=== PATIENT | male | born 1940 | race Caucasian/White ===

== ENCOUNTER 2022-07-28 09:12 | Observation (INO) | payer MEDICARE ==
[2022-07-28] MEDS ORDERED: SODIUM CHLORIDE 0.9% 1,000 ML IV STA (09:35)
--- NOTE | 2022-07-28 09:42 | ED ---
General Adult HPI - General Chief complaint: Fall Stated complaint: Dementia,COPD Time Seen by Provider: 07/28/22 09:15 Source: patient, EMS, RN notes reviewed, old records reviewed Mode of arrival: EMS Limitations: no limitations - History of Present Illness Initial comments: This is an 82-year-old male presents emergency department after having had a syncopal episode. Patient states he got up this morning took a very warm shower and sat down on the toilet and then passed out. Patient states he had no chest pain difficulty breathing shortness of breath before or after the incident. Patient denies injuring himself when he fell off the toilet. Patient states he has no headache he has not had any pain on a scale. Patient denies any neck pain patient with any numbness weakness. Patient states he is absolutely no symptoms currently. Patient states he's been no recent history of nausea vomiting or diarrhea. Patient denies any recent fever chills or cough. Patient states he never had any palpitations. Patient states currently he feels at his baseline and he doesn't think he needs to be here. - Related Data Home Medications Medication Instructions Recorded Confirmed Erivedge 150mg Caps 150 mg PO HS 07/28/22 07/28/22 Losartan-Hctz 50-12.5 mg [Hyzaar 1 tab PO DAILY 07/28/22 07/28/22 50-12.5] Mupirocin 2% Oint [Bactroban 2% 1 applic TOPICAL DAILY 07/28/22 07/28/22 Oint] Allergies Allergy/AdvReac Type Severity Reaction Status Date / Time No Known Allergies Allergy Verified 07/28/22 10:43 Review of Systems ROS Statement: Those systems with pertinent positive or pertinent negative responses have been documented in the HPI. ROS Other: All systems not noted in ROS Statement are negative. Past Medical History Past Medical History: Cancer, Dementia, Hypertension Additional Past Medical History / Comment(s): Skin cancer 2021 History of Any Multi-Drug Resistant Organisms: None Reported Past Surgical History: Orthopedic Surgery Additional Past Surgical History / Comment(s): skin cancer removal, Past Psychological History: No Psychological Hx Reported Smoking Status: Former smoker Past Alcohol Use History: None Reported Past Drug Use History: None Reported General Exam - General Exam Comments Initial Comments: GENERAL: Patient is well-developed and well-nourished. Patient is nontoxic and well- hydrated and is in no acute distress. ENT: Neck is soft and supple. No significant lymphadenopathy is noted. Oropharynx is clear. Moist mucous membranes. Neck has full range of motion without eliciting any pain. EYES: The sclera were anicteric and conjunctiva were pink and moist. Extraocular movements were intact and pupils were equal round and reactive to light. Eyelids were unremarkable. PULMONARY: Unlabored respirations. Good breath sounds bilaterally. No audible rales rhonchi or wheezing was noted. CARDIOVASCULAR: There is a regular rate and rhythm without any murmurs gallops or rubs. ABDOMEN: Soft and nontender with normal bowel sounds. SKIN: Skin is clear with no lesions or rashes and otherwise unremarkable. NEUROLOGIC: Patient is alert and oriented x3. Cranial nerves II through XII are grossly intact. Motor and sensory are also intact. Normal speech, volume and content. Symmetrical smile. MUSCULOSKELETAL: Normal extremities with adequate strength and full range of motion. No lower extremity swelling or edema. No calf tenderness. LYMPHATICS: No significant lymphadenopathy is noted PSYCHIATRIC: Normal psychiatric evaluation. Limitations: no limitations Course Vital Signs 07/28/22 07/28/22 07/28/22 09:13 10:00 10:30 Temperature 98.7 F Pulse Rate 65 64 84 Respiratory 18 22 18 Rate Blood Pressure 131/96 123/74 124/68 O2 Sat by Pulse 96 95 96 Oximetry 07/28/22 07/28/22 07/28/22 11:00 11:30 12:00 Temperature Pulse Rate 68 71 70 Respiratory 18 18 18 Rate Blood Pressure 143/79 133/76 130/74 O2 Sat by Pulse 96 96 96 Oximetry Medical Decision Making - Medical Decision Making EKG shows sinus bradycardia [address] interval is 150 QRS is 81 QT interval 382 QTC is 381. Patient's EKG shows no ST segment elevation or depression. Family arrived and stated he vomited at least 5 times recently and is unsafe to have him at home it's unsupervised. I spoke with sounds physician's he agreed to admit the patient to the patient wrote admitting orders. - Lab Data Result diagrams: 07/28/22 09:36 07/28/22 09:36 Lab Results 07/28/22 07/28/22 07/28/22 Range/Units 09:36 09:36 09:36 WBC 4.3 (3.8-10.6) k/uL RBC 5.43 (4.30-5.90) m/uL Hgb 14.7 (13.0-17.5) gm/dL Hct 45.8 (39.0-53.0) % MCV 84.4 (80.0-100.0) fL MCH 27.1 (25.0-35.0) pg MCHC 32.1 (31.0-37.0) g/dL RDW 16.0 H (11.5-15.5) % Plt Count 180 (150-450) k/uL MPV 8.7 Neutrophils % 73 % Lymphocytes % 18 % Monocytes % 6 % Eosinophils % 1 % Basophils % 0 % Neutrophils # 3.1 (1.3-7.7) k/uL Lymphocytes # 0.8 L (1.0-4.8) k/uL Monocytes # 0.3 (0-1.0) k/uL Eosinophils # 0.1 (0-0.7) k/uL Basophils # 0.0 (0-0.2) k/uL PT 9.9 (9.0-12.0) sec INR 0.9 (<1.2) APTT 19.6 L (22.0-30.0) sec Sodium (137-145) mmol/L Potassium (3.5-5.1) mmol/L Chloride (98-107) mmol/L Carbon Dioxide (22-30) mmol/L Anion Gap mmol/L BUN (9-20) mg/dL Creatinine (0.66-1.25) mg/dL Est GFR (CKD-EPI)AfAm (>60 ml/min/1.73 sqM) Est GFR (CKD-EPI)NonAf (>60 ml/min/1.73 sqM) Glucose (74-99) mg/dL Calcium (8.4-10.2) mg/dL Magnesium (1.6-2.3) mg/dL Total Bilirubin (0.2-1.3) mg/dL AST (17-59) U/L ALT (4-49) U/L Alkaline Phosphatase (38-126) U/L Troponin I (0.000-0.034) ng/mL Total Protein (6.3-8.2) g/dL Albumin (3.5-5.0) g/dL Urine Color Yellow Urine Appearance Clear (Clear) Urine pH 6.5 (5.0-8.0) Ur Specific Grayson 1.021 (1.001-1.035) Urine Protein Trace H (Negative) Urine Glucose (UA) Negative (Negative) Urine Ketones Negative (Negative) Urine Blood Negative (Negative) Urine Nitrite Negative (Negative) Urine Bilirubin Negative (Negative) Urine Urobilinogen <2.0 (<2.0) mg/dL Ur Leukocyte Esterase Negative (Negative) 07/28/22 07/28/22 Range/Units 09:36 09:36 WBC (3.8-10.6) k/uL RBC (4.30-5.90) m/uL Hgb (13.0-17.5) gm/dL Hct (39.0-53.0) % MCV (80.0-100.0) fL MCH (25.0-35.0) pg MCHC (31.0-37.0) g/dL RDW (11.5-15.5) % Plt Count (150-450) k/uL MPV Neutrophils % % Lymphocytes % % Monocytes % % Eosinophils % % Basophils % % Neutrophils # (1.3-7.7) k/uL Lymphocytes # (1.0-4.8) k/uL Monocytes # (0-1.0) k/uL Eosinophils # (0-0.7) k/uL Basophils # (0-0.2) k/uL PT (9.0-12.0) sec INR (<1.2) APTT (22.0-30.0) sec Sodium 138 (137-145) mmol/L Potassium 4.1 (3.5-5.1) mmol/L Chloride 106 (98-107) mmol/L Carbon Dioxide 21 L (22-30) mmol/L Anion Gap 11 mmol/L BUN 17 (9-20) mg/dL Creatinine 0.99 (0.66-1.25) mg/dL Est GFR (CKD-EPI)AfAm 82 (>60 ml/min/1.73 sqM) Est GFR (CKD-EPI)NonAf 71 (>60 ml/min/1.73 sqM) Glucose 120 H (74-99) mg/dL Calcium 8.4 (8.4-10.2) mg/dL Magnesium 1.8 (1.6-2.3) mg/dL Total Bilirubin 0.6 (0.2-1.3) mg/dL AST 23 (17-59) U/L ALT 23 (4-49) U/L Alkaline Phosphatase 81 (38-126) U/L Troponin I <0.012 (0.000-0.034) ng/mL Total Protein 6.1 L (6.3-8.2) g/dL Albumin 3.7 (3.5-5.0) g/dL Urine Color Urine Appearance (Clear) Urine pH (5.0-8.0) Ur Specific Grayson (1.001-1.035) Urine Protein (Negative) Urine Glucose (UA) (Negative) Urine Ketones (Negative) Urine Blood (Negative) Urine Nitrite (Negative) Urine Bilirubin (Negative) Urine Urobilinogen (<2.0) mg/dL Ur Leukocyte Esterase (Negative) Disposition Clinical Impression: Syncope, Multiple falls Disposition: ADMITTED IP TO THIS [facility] Referrals: Francisco Javier Caballero DO [Primary Care Provider] - 1-2 days Time of Disposition: 12:31
[2022-07-28 09:44] LABS: Basophils % (A) 0 %; Eosinophils # (A) 0.1 k/uL (0-0.7); Eosinophils % (A) 1 %; HCT 45.8 % (39.0-53.0); HGB 14.7 gm/dL (13.0-17.5); Lymphocytes # (A) 0.8 k/uL (1.0-4.8); Lymphocytes % (A) 18 %; MCH 27.1 pg (25.0-35.0); MCHC 32.1 g/dL (31.0-37.0); MCV 84.4 fL (80.0-100.0); Mean Platelet Volume 8.7; Monocytes # (A) 0.3 k/uL (0-1.0); Monocytes % (A) 6 %; Neutrophils # (A) 3.1 k/uL (1.3-7.7); Neutrophils % (A) 73 %; Platelet Count 180 k/uL (150-450); RBC 5.43 m/uL (4.30-5.90); WBC 4.3 k/uL (3.8-10.6)
[2022-07-28 09:54] LABS: Albumin 3.7 g/dL (3.5-5.0); Calcium 8.4 mg/dL (8.4-10.2); Magnesium 1.8 mg/dL (1.6-2.3); Potassium 4.1 mmol/L (3.5-5.1); Total Bilirubin 0.6 mg/dL (0.2-1.3); Total Protein 6.1 g/dL (6.3-8.2)
[2022-07-28 10:00] LABS: INR 0.9 (<1.2); Prothrombin Time 9.9 sec (9.0-12.0)
[2022-07-28 10:17] LABS: Partial Thromboplastin Time 19.6 sec (22.0-30.0)
--- NOTE | 2022-07-28 10:32 | XR ---
EXAMINATION TYPE: XR chest 2V DATE OF EXAM: 07/28/2022 COMPARISON: NONE HISTORY: Chest pain TECHNIQUE: Frontal and lateral views of the chest are obtained. FINDINGS: The patient is rotated. There is no focal air space opacity, pleural effusion, or pneumotho rax seen. The cardiac silhouette size is within normal limits. Bandlike areas of increased attenuati on present at the lung bases may reflect atelectasis or scar. There are overlying leads. The osseous structures are intact, compression deformity is noted in the lower thoracic spine, arthropathy noted in the shoulders. IMPRESSION: Possible atelectasis or scarring. Suspect compression deformity near the thoracolumbar j unction, indeterminate age.
[2022-07-28 11:44] LABS: Appearance,Urine Clear (Clear); Bilirubin,Urine Negative (Negative); Blood,Urine Negative (Negative); Color,Urine Yellow; Glucose,Urine (UA) Negative (Negative); Ketones,Urine Negative (Negative); Leukocyte Esterase,Urine Negative (Negative); Nitrite,Urine Negative (Negative); PH, Urine 6.5 (5.0-8.0); Protein,Urine Trace (Negative); Specific Gravity,Urine 1.021 (1.001-1.035); Urobilinogen,Urine <2.0 mg/dL (<2.0)
[2022-07-28] MEDS ORDERED: SODIUM CHLORIDE 0.9% 1,000 ML IV ONE (12:31)
--- NOTE | 2022-07-28 16:28 | P.HPIM ---
History of Present Illness H&P Date: 07/28/22 Chief Complaint: fall Patient is a 82-year-old male with a past medical history of hypertension and skin cancer with recent resection who presents to the ED because of a fall. Patient states that he took a warm shower and then sat on the toilet to dry himself and then the next thing he remembers is that he is between the toilet and the shower. Patient does not know how he got stuck there. He believes that he may have passed out. He denies urinary incontinence or tongue soreness. He also denies any chest pain or lightheadedness at that time. His nephew called EMS and he was brought in for further evaluation. Patient also states that his is at [facility] rehab and they have been trying to get him into rehab so that he can be with his and also because at home he is having a difficult time going up the stairs. In the ED family said they did not feel comfortable taking him home because they thought that he was high risk for falls. Of note when I first walked into the patient's room he was standing up independently and was urinating inside a urinal. Patient said that he is able to get up by himself and use the urinal. Review of Systems 10 ROS reviewed and are negative except as noted in HPI Past Medical History Past Medical History: Cancer, Dementia, Hypertension Additional Past Medical History / Comment(s): Skin cancer 2021 History of Any Multi-Drug Resistant Organisms: None Reported Past Surgical History: Orthopedic Surgery Additional Past Surgical History / Comment(s): skin cancer removal, Past Psychological History: No Psychological Hx Reported Smoking Status: Former smoker Past Alcohol Use History: None Reported Past Drug Use History: None Reported Medications and Allergies Home Medications Medication Instructions Recorded Confirmed Type Erivedge 150mg Caps 150 mg PO HS 07/28/22 07/28/22 History Losartan-Hctz 50-12.5 mg [Hyzaar 1 tab PO DAILY 07/28/22 07/28/22 History 50-12.5] Mupirocin 2% Oint [Bactroban 2% 1 applic TOPICAL DAILY 07/28/22 07/28/22 History Oint] Allergies Allergy/AdvReac Type Severity Reaction Status Date / Time No Known Allergies Allergy Verified 07/28/22 10:43 Physical Exam Osteopathic Statement: *. No significant issues noted on an osteopathic structural exam other than those noted in the History and Physical/Consult. Vitals: Vital Signs Temp Pulse Resp BP Pulse Ox 07/28/22 13:30 61 18 130/77 07/28/22 13:00 72 18 157/50 07/28/22 12:30 80 18 126/76 07/28/22 12:00 70 18 130/74 96 07/28/22 11:30 71 18 133/76 96 07/28/22 11:00 68 18 143/79 96 07/28/22 10:30 84 18 124/68 96 07/28/22 10:00 64 22 123/74 95 07/28/22 09:13 98.7 F 65 18 131/96 96 Intake and Output 07/28/22 07/28/22 07/28/22 06:59 14:59 22:59 Other: Weight 81.647 kg General: [Alert and oriented, well nourished, no acute distress]. Eye: [PERRL, EOMI, normal conjunctiva]. HENT: [Normocephalic, clear tympanic membranes, normal hearing, moist oral mucosa, no scleral icterus, no sinus tenderness]. Neck: [Supple, non-tender, no carotid bruits, no JVD, no lymphadenopathy]. Lungs: [Clear to auscultation and percussion, non-labored respiration]. Heart: [Normal rate, regular rhythm, no murmur, gallop or edema]. Abdomen: [Soft, non-tender, non-distended, normal bowel sounds, no masses]. Musculoskeletal: [Normal range of motion and strength, no tenderness or swelling]. Skin: [Bandage on the back of his neck is intact and dry]. Neurologic: [Awake, alert, and oriented X3, CN II-XII intact]. Psychiatric: [Cooperative, appropriate mood and affect]. Results CBC & Chem 7: 07/28/22 09:36 07/28/22 09:36 Labs: Abnormal Lab Results - Last 24 Hours (Table) 07/28/22 07/28/22 07/28/22 Range/Units 09:36 09:36 09:36 RDW 16.0 H (11.5-15.5) % Lymphocytes # 0.8 L (1.0-4.8) k/uL APTT 19.6 L (22.0-30.0) sec Carbon Dioxide (22-30) mmol/L Glucose (74-99) mg/dL Total Protein (6.3-8.2) g/dL Urine Protein Trace H (Negative) 07/28/22 Range/Units 09:36 RDW (11.5-15.5) % Lymphocytes # (1.0-4.8) k/uL APTT (22.0-30.0) sec Carbon Dioxide 21 L (22-30) mmol/L Glucose 120 H (74-99) mg/dL Total Protein 6.1 L (6.3-8.2) g/dL Urine Protein (Negative) Assessment and Plan Assessment: Syncope Rule out cardiogenic etiology Trend troponins. First set troponin is negative Telemetry Cardiology consult Echocardiogram Check orthostatics and was start gentle fluids Hypertension Resume home meds Skin cancer at the back of his neck with recent resection Resume ointment and family to bring in Erivedge DVT prophylaxis: Subcu heparin Full Code
[2022-07-28] MEDS: SODIUM CHLORIDE 0.9% 1,000 ML IV SCH (16:44)
[2022-07-28] MEDS: ERIVEDGE 150 MG PO SCH (22:02)
[2022-07-28] MEDS: HEPARIN SODIUM,PORCINE/PF 5,000 UNIT/0.5 ML SYRINGE SQ SCH (22:05)
[2022-07-29] MEDS: SODIUM CHLORIDE 0.9% 1,000 ML IV SCH ×2 (05:40→19:24)
[2022-07-29] MEDS: HEPARIN SODIUM,PORCINE/PF 5,000 UNIT/0.5 ML SYRINGE SQ SCH ×2 (08:11→20:38)
[2022-07-29] MEDS: LOSARTAN-HCTZ 50-12.5 MG 1 EACH TAB PO SCH (08:12)
[2022-07-29] MEDS: MUPIROCIN 2% OINT 22 GM TUBE TOPICAL SCH (08:14)
--- NOTE | 2022-07-29 14:00 | P.PN ---
Subjective Progress Note Date: 07/29/22 Yesterday patient did not remember-off the toilet. Today patient states that he slipped off the toilet and he remembers how he fell. His history is inconsistent. Patient otherwise has no acute complaints. Objective - Vital Signs Vital signs: Vital Signs Temp 97.7 F 07/29/22 11:31 Pulse 73 07/29/22 11:31 Resp 16 07/29/22 11:31 BP 131/63 07/29/22 11:31 Pulse Ox 99 07/29/22 04:24 FiO2 Intake & Output 07/28/22 07/29/22 07/29/22 18:59 06:59 18:59 Intake Total 1300 Balance 1300 Weight 81.647 kg 81.647 kg Intake: Intake, IV Titration 800 Amount Sodium Chloride 0.9% 1, 800 000 ml @ 75 mls/hr IV . [id number] [facility] Rx#:[id number] Oral 500 Other: Voiding Method Toilet Toilet Diaper Incontinent # Voids 1 - Exam General examination - Alert and Oriented 3 in NAD Heart - + S1S2 no murmurs Lungs - Clear to auscultation Abdomen soft NT ND +ve BS Extremities - No edema [employer] - Moving all 4 extremities spontaneously Psych - Calm and cooperative - Labs CBC & Chem 7: 07/28/22 09:36 07/28/22 09:36 Assessment and Plan Assessment: Syncope Rule out cardiogenic etiology Troponins are negative 2. Telemetry Cardiology consult Echocardiogram pending Check orthostatics and was start gentle fluids Hypertension Resume home meds Skin cancer at the back of his neck with recent resection Resume ointment and family to bring in Erivedge PT OT consult DVT prophylaxis: Subcu heparin Full Code
--- NOTE | 2022-07-29 14:39 | P.CRDCN ---
History of Present Illness Consult date: 07/29/22 Requesting physician: Maxwell Alvarado Reason for Consult (text): syncope Chief complaint: fall History of present illness: This is a pleasant 82-year-old gentleman with a history of hypertension. We are asked to see the patient in consultation for syncope. In talking with the patient there was no clear loss of consciousness. According to the patient he got out of the shower and put a folded up towel on the toilet to sit on and slipped off and was wedged between the toilet and color. He called the gentleman who he lives with to help him up. According to him he was somewhat stuck in there unable to get him up on their own and EMS was called. Again he denies any loss of consciousness, dizziness or lightheadedness. Chest x-ray on admission showed possible atelectasis or scarring, suspect compression deformity near the thoracolumbar junction, indeterminate age. Patient's noted in the chart to have multiple falls at home however the patient denies this. EKG on admission showed sinus mechanism with no evidence of ischemia. Vital signs have been stable. He's been afebrile. Troponins have been negative 3. He is maintaining sinus mechanism on the monitor without any significant tachycardia or bradycardia episodes. Past Medical History Past Medical History: Cancer, Dementia, Hypertension Additional Past Medical History / Comment(s): Skin cancer 2021 History of Any Multi-Drug Resistant Organisms: None Reported Past Surgical History: Orthopedic Surgery Additional Past Surgical History / Comment(s): skin cancer removal, Right hip replacement Past Psychological History: No Psychological Hx Reported Smoking Status: Former smoker Past Alcohol Use History: None Reported Past Drug Use History: None Reported Medications and Allergies Home Medications Medication Instructions Recorded Confirmed Type Erivedge 150mg Caps 150 mg PO HS 07/28/22 07/28/22 History Losartan-Hctz 50-12.5 mg [Hyzaar 1 tab PO DAILY 07/28/22 07/28/22 History 50-12.5] Mupirocin 2% Oint [Bactroban 2% 1 applic TOPICAL DAILY 07/28/22 07/28/22 History Oint] Allergies Allergy/AdvReac Type Severity Reaction Status Date / Time No Known Allergies Allergy Verified 07/28/22 10:43 Physical Exam Vitals: Vital Signs Temp Pulse Pulse Pulse Pulse Pulse Resp 07/29/22 11:31 97.7 F 64 68 73 16 07/29/22 04:24 98.4 F 54 L 83 64 18 07/28/22 22:00 18 07/28/22 21:40 98.3 F 81 18 07/28/22 20:14 72 16 07/28/22 17:30 78 18 07/28/22 17:00 73 18 07/28/22 16:30 88 18 07/28/22 16:00 71 18 07/28/22 15:30 72 18 07/28/22 15:00 63 18 07/28/22 14:30 75 18 07/28/22 14:00 62 18 07/28/22 13:30 61 18 BP BP BP BP BP Pulse Ox 07/29/22 11:31 131/63 123/65 150/72 07/29/22 04:24 115/72 134/74 127/75 99 07/28/22 22:00 07/28/22 21:40 149/92 99 07/28/22 20:14 158/84 07/28/22 17:30 135/82 99 07/28/22 17:00 146/124 99 07/28/22 16:30 151/85 99 07/28/22 16:00 137/78 99 07/28/22 15:30 124/77 99 07/28/22 15:00 142/79 99 07/28/22 14:30 139/74 99 07/28/22 14:00 123/75 99 07/28/22 13:30 130/77 Intake and Output 07/28/22 07/29/22 07/29/22 22:59 06:59 14:59 Intake Total 1300 Balance 1300 Intake: Intake, IV Titration 800 Amount Sodium Chloride 0.9% 1, 800 000 ml @ 75 mls/hr IV . [id number] [facility] Rx#:[id number] Oral 500 Other: Voiding Method Toilet Toilet Diaper Incontinent # Voids 1 Weight 81.647 kg PHYSICAL EXAMINATION: This is a 82-year-old male in no apparent distress at the time of my examination. VITAL SIGNS: Blood pressure 134/74, heart rate 64, respirations 18, temp 98.4F. Patient is 99 % on room air. HEENT: Head is atraumatic, normocephalic. Pupils are equal, round. Sclerae anicteric. Conjunctivae are clear. Mucous membranes of the mouth are moist. Neck is supple. There is no elevated jugular venous pressure. No carotid bruit is heard. CHEST EXAMINATION: Clear to auscultation bilaterally. No wheezes rales or rhonchi. Respirations even and nonlabored. HEART EXAMINATION: Heart regular, positive S1 and S2. No S3. No S4. With a soft systolic murmur. ABDOMEN: Soft, nontender. Bowel sounds are heard. No organomegaly noted. EXTREMITIES: 2+ peripheral pulses with no evidence of peripheral edema and no calf tenderness noted. NEUROLOGIC EXAMINATION: Patient is awake, alert and oriented x3. Results 07/28/22 09:36 07/28/22 09:36 Cardiac Enzymes 07/28/22 07/28/22 Range/Units 18:08 22:04 Troponin I <0.012 <0.012 (0.000-0.034) ng/mL Current Medications Generic Name Dose Route Start Last Admin Trade Name Freq PRN Reason Stop Dose Admin HCTZ/Losartan Potassium 1 each 07/29/22 09:00 07/29/22 08:12 Losartan-Hctz 50-12.5 Mg 1 Each Tab PO 1 each DAILY VIPUL Administration Heparin Sodium (Porcine) 5,000 unit 07/28/22 21:00 07/29/22 08:11 Heparin Sodium,Porcine/Pf 5,000 Unit/0.5 Ml Syringe SQ 5,000 unit Q12HR VIPUL Administration Sodium Chloride 1,000 mls @ 75 mls/hr 07/28/22 16:30 07/29/22 05:40 Saline 0.9% IV 75 mls/hr .[id number] VIPUL Administration Mupirocin 1 applic 07/29/22 09:00 07/29/22 08:14 Mupirocin 2% Oint 22 Gm Tube TOPICAL 1 applic DAILY VIPUL Administration Protocol Non-Formulary Medication 150 mg 07/28/22 21:00 07/28/22 22:02 Erivedge 150mg Caps PO 150 mg HS VIPUL Administration Intake and Output 07/28/22 07/29/22 07/29/22 22:59 06:59 14:59 Intake Total 1300 Balance 1300 Intake: Intake, IV Titration 800 Amount Sodium Chloride 0.9% 1, 800 000 ml @ 75 mls/hr IV . [id number] [facility] Rx#:[id number] Oral 500 Other: Voiding Method Toilet Toilet Diaper Incontinent # Voids 1 Weight 81.647 kg 07/28/22 09:36 07/28/22 09:36 Assessment and Plan Assessment: #1 fall from a seated position, patient denies any loss of consciousness #2 hypertension Plan: From cardiology's perspective there is no clear syncopal event. We will review 2-D echo when it's completed. If there is no significant abnormalities we will follow the patient on an as-needed basis. CASINO RUNNER note has been reviewed, I agree with a documented findings and plan of care. Patient was seen and examined.
--- NOTE | 2022-07-29 16:47 | CA ---
Transthoracic Echo Report Name: Dean Crooks Age: 82 Gender: M : 1940 Exam Date: 07/29/2022 14:57 Exam Location: [place] [facility] Ht (in): 66 Wt (lb): 180 Ordering Physician: Maxwell Alvarado MD Attending/Referring Phys: Central Office Frame Wirer Li Wallace RDCS Procedure CPT: Indications: Syncope Cardiac Hx: Technical Quality: Good Contrast 1: Total Dose (mL): Contrast 2: Total Dose (mL): MEASUREMENTS (Male / Female) Normal Values 2D ECHO LV Diastolic Diameter PLAX 3.4 cm 4.2 - 5.9 / 3.9 - 5.3 cm LV Systolic Diameter PLAX 2.3 cm IVS Diastolic Thickness 1.7 cm 0.6 - 1.0 / 0.6 - 0.9 cm LVPW Diastolic Thickness 1.3 cm 0.6 - 1.0 / 0.6 - 0.9 cm LV Relative Wall Thickness 0.9 RV Internal Dim ED PLAX 3.4 cm LVOT Diameter 2.2 cm LA Systolic Diameter LX 4.2 cm 3.0 - 4.0 / 2.7 - 3.8 cm LA Volume 50.4 cm??? 18 - 58 / 22 - 52 cm??? M-MODE Aortic Root Diameter MM 3.3 cm MV E Point Septal Separation 0.7 cm AV Cusp Separation MM 1.8 cm DOPPLER AV Peak Velocity 143.7 cm/s AV Peak Gradient 8.3 mmHg MV Area PHT 3.1 cm??? Mitral E Point Velocity 88.5 cm/s Mitral A Point Velocity 128.8 cm/s Mitral E to A Ratio 0.7 MV Deceleration Time 244.3 ms MV E' Velocity 7.8 cm/s Mitral E to MV E' Ratio 11.3 TR Peak Velocity 281.1 cm/s TR Peak Gradient 31.6 mmHg Right Ventricular Systolic Press 36.6 mmHg FINDINGS Left Ventricle Left ventricular ejection fraction is estimated at 55-60 %. Severely increased septal wall thickness. The ventricle size is normal Right Ventricle Mild right ventricular dilatation. Mild pulmonary hypertension. Right Atrium Normal right atrial size. Left Atrium Mildly increased left atrial diameter. No evidence for an atrial septal defect. Mitral Valve Mitral valve thickened. Mild mitral regurgitation Aortic Valve Trileaflet aortic valve. No aortic valve stenosis or regurgitation. Aortic sclerosis with no evidence of stenosis Tricuspid Valve Mild tricuspid regurgitation.structurally normal tricuspid valve. Pulmonic Valve Structurally normal pulmonic valve. Pericardium Normal pericardium. Aorta Normal size aortic root and proximal ascending aorta. CONCLUSIONS 1. Normal left ventricle size and systolic function 2. Mild mitral and tricuspid regurgitation Previewed by: Dr. Get Mullen MD (Electronically Signed) Final Date: 29 July 2022 16:46
[2022-07-29] MEDS: ERIVEDGE 150 MG PO SCH (20:38)
[2022-07-30] MEDS: SODIUM CHLORIDE 0.9% 1,000 ML IV SCH ×2 (04:22→20:35)
[2022-07-30] MEDS: HEPARIN SODIUM,PORCINE/PF 5,000 UNIT/0.5 ML SYRINGE SQ SCH ×2 (09:42→20:35)
[2022-07-30] MEDS: MUPIROCIN 2% OINT 22 GM TUBE TOPICAL SCH (09:42)
[2022-07-30] MEDS: LOSARTAN-HCTZ 50-12.5 MG 1 EACH TAB PO SCH (09:42)
--- NOTE | 2022-07-30 10:55 | P.PN ---
Subjective Progress Note Date: 07/30/22 Patient is denying any acute complaints. He states that [facility]. Objective - Vital Signs Vital signs: Vital Signs Temp 97.8 F 07/30/22 04:20 Pulse 72 07/30/22 04:20 Resp 18 07/30/22 04:20 BP 127/75 07/30/22 04:20 Pulse Ox 95 07/30/22 04:20 FiO2 Intake & Output 07/29/22 07/30/22 07/30/22 18:59 06:59 18:59 Intake Total 900 1400 Balance 900 1400 Intake: Intake, IV Titration 900 900 Amount Sodium Chloride 0.9% 1, 900 900 000 ml @ 75 mls/hr IV . 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 Patient states that he slipped off the toilet seat. Rule out cardiogenic etiology Troponins are negative 2. Telemetry negative for any malignant arrhythmias Echocardiogram is unremarkable Cardiology signed off Orthostatics negative Hypertension Resume home meds Skin cancer at the back of his neck with recent resection Resume ointment and family to bring in [facility] PT OT consult pending. Patient would like to be with his at [facility] DVT prophylaxis: Subcu heparin Full Code
[2022-07-30] MEDS: ERIVEDGE 150 MG PO SCH (20:35)
[2022-07-31] MEDS: MUPIROCIN 2% OINT 22 GM TUBE TOPICAL SCH (09:09)
[2022-07-31] MEDS: HEPARIN SODIUM,PORCINE/PF 5,000 UNIT/0.5 ML SYRINGE SQ SCH ×2 (09:09→20:03)
[2022-07-31] MEDS: LOSARTAN-HCTZ 50-12.5 MG 1 EACH TAB PO SCH (09:09)
[2022-07-31] MEDS: SODIUM CHLORIDE 0.9% 1,000 ML IV SCH ×2 (13:13→23:51)
--- NOTE | 2022-07-31 13:13 | P.PN ---
Subjective Progress Note Date: 07/31/22 Patient denies any acute complaints. He worked with physical therapy who recommended rehab. I discussed with the social sciences professor who said that they trying to look for a bed at [facility]. This is where his is.. Objective - Vital Signs Vital signs: Vital Signs Temp 98.1 F 07/31/22 11:22 Pulse 76 07/31/22 11:22 Resp 16 07/31/22 11:22 BP 126/73 07/31/22 11:22 Pulse Ox 94 L 07/31/22 11:22 FiO2 Intake & Output 07/30/22 07/31/22 07/31/22 18:59 06:59 18:59 Intake Total 450 800 Balance 450 800 Intake: Intake, IV Titration 450 Amount Sodium Chloride 0.9% 1, 450 000 ml @ 75 mls/hr IV . 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 Patient states that he slipped off the toilet seat. Rule out cardiogenic etiology Troponins are negative 2. Telemetry negative for any malignant arrhythmias Echocardiogram is unremarkable Cardiology signed off Orthostatics negative Hypertension Resume home meds Skin cancer at the back of his neck with recent resection Resume ointment and [facility] PT OT recommends senior care facility. Patient would like to be with his at [facility] rehab DVT prophylaxis: Subcu heparin Full Code
[2022-07-31] MEDS: ERIVEDGE 150 MG PO SCH (20:03)
[2022-08-01] MEDS: HEPARIN SODIUM,PORCINE/PF 5,000 UNIT/0.5 ML SYRINGE SQ SCH ×2 (08:55→19:57)
[2022-08-01] MEDS: MUPIROCIN 2% OINT 22 GM TUBE TOPICAL SCH (08:56)
[2022-08-01] MEDS: LOSARTAN-HCTZ 50-12.5 MG 1 EACH TAB PO SCH (08:56)
--- NOTE | 2022-08-01 14:53 | P.PN ---
Subjective Progress Note Date: 08/01/22 Patient is a 82-year-old male with a past medical history of hypertension and skin cancer with recent resection who presents to the ED because of a fall. Patient states that he took a warm shower and then sat on the toilet to dry himself and then the next thing he remembers is that he is between the toilet and the shower. Patient does not know how he got stuck there. He believes that he may have passed out. He denies urinary incontinence or tongue soreness. He also denies any chest pain or lightheadedness at that time. His nephew called EMS and he was brought in for further evaluation. Patient also states that his is at [facility] rehab and they have been trying to get him into rehab so that he can be with his and also because at home he is having a difficult time going up the stairs. In the ED family said they did not feel comfortable taking him home because they thought that he was high risk for falls. Of note when I first walked into the patient's room he was standing up independently and was urinating inside a urinal. Patient said that he is able to get up by himself a nd use the urinal. Orthostatic vitals were negative. Troponins were trended and ACS was ruled out. Echocardiogram was done which showed EF of 55-60%, severely increased septal wall thickness, mild mitral and tricuspid regurgitation. Cardiology was consulted and signed off. PT and OT evaluated the patient recommended retirement facility. Patient was accepted had [facility] starting tomorrow. Patient was seen and examined. No acute events overnight. Patient no complaints. General: non toxic, no distress, appears at stated age Derm: warm, dry Head: atraumatic, normocephalic, symmetric Eyes: EOMI, no lid lag, anicteric sclera Mouth: no lip lesion, mucus membranes moist Cardiovascular: S1S2 reg, no murmur Lungs: CTA bilateral, no rhonchi, no rales , no accessory muscle use Ext: no gross muscle atrophy, no edema, no contractures Neuro: no focal neuro deficits Psych: Alert, oriented, appropriate affect Syncope Patient now changed his story and said that he remembers how he fell off the toilet. Patient states that he slipped off the toilet seat. Rule out cardiogenic etiology. ACS ruled out. Telemetry negative for any malignant arrhythmias. Echocardiogram is unremarkable. Cardiology signed off. Orthostatics negative. Hypertension Resume home meds. Skin cancer at the back of his neck with recent resection Patient can discontinue Erivedge treatment until he is out of rehab. Anticipated discharge to [facility] tomorrow. Medically stable. Objective - Vital Signs Vital signs: Vital Signs Temp 97.3 F L 08/01/22 11:51 Pulse 71 08/01/22 11:51 Resp 17 08/01/22 11:51 BP 117/71 08/01/22 11:51 Pulse Ox 96 08/01/22 11:51 FiO2 Intake & Output 07/31/22 08/01/22 08/01/22 18:59 06:59 18:59 Intake Total 600 Balance 600 Intake: Oral 600 Other: Voiding Method Toilet Toilet # Voids 5 2 - Labs CBC & Chem 7: 07/28/22 09:36 07/28/22 09:36
[2022-08-01 17:57] VITALS: RESP 16
[2022-08-01 18:02] LABS: Glucose,Whole Blood 87 mg/dL (70-110)
--- NOTE | 2022-08-01 18:31 | CT ---
CT scan of the brain. History weakness. Comparison none. FINDINGS: There is cerebral cortical atrophy. There is no mass effect or midline shift. No sign of intracranial hemorrhage. There is 2 cm hypodensity anterior right internal capsule. The calvarium is intact. The skull base is intact. There is limited pneumatization of the right mastoid sinus. IMPRESSION: Cerebral atrophy. 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 No acute intracranial abnormality.
[2022-08-01] MEDS ORDERED: ASPIRIN 325 MG TAB PO SCH (19:00)
--- NOTE | 2022-08-01 19:18 | CT ---
EXAMINATION TYPE: CODE STROKE: CTA head neck DATE OF EXAM: 08/01/2022 COMPARISON: None HISTORY: Code Stroke Weakness CT DLP: 519 mGycm Automated exposure control for dose reduction was used. CONTRAST: Performed with IV Contrast, patient injected with 65cc mL of Isovue 370. Images obtained from the aortic arch to the vertex of the brain with IV contrast. There are Three-D p ostprocessed images. Thoracic aorta arch is intact. No aneurysm or dissection. There is normal branching pattern of the gr eat vessels on the aortic arch. There is bilateral arterial flow in the subclavian arteries. There is arterial flow in the common internal and extra renal card arteries bilaterally. There is plaque form ation at the carotid artery bifurcations. There is estimated 25% stenosis at the origin of the left i nternal carotid artery. There is some fusiform stenosis of 50% in the origin right internal carotid a rtery. There is arterial flow in both vertebral arteries. There is arterial flow in the vertebrobasil ar artery system. No evidence of carotid or vertebral artery aneurysm or dissection. There is arterial flow in the anterior middle and posterior cerebral arteries bilaterally. No mass ef fect. No evidence of intracranial aneurysm or neovascularity. There is normal enhancement of the veno us sinuses. IMPRESSION: No significant intracranial angiographic abnormality. There is approximate 50% stenosis at the origin right internal carotid artery and 25% stenosis origin left internal carotid artery.
[2022-08-01] MEDS: ERIVEDGE 150 MG PO SCH (19:57)
[2022-08-01] MEDS: SODIUM CHLORIDE 0.9% 1,000 ML IV SCH (20:15)
[2022-08-02] MEDS: HEPARIN SODIUM,PORCINE/PF 5,000 UNIT/0.5 ML SYRINGE SQ SCH ×2 (08:27→20:23)
[2022-08-02] MEDS: LOSARTAN-HCTZ 50-12.5 MG 1 EACH TAB PO SCH (08:27)
[2022-08-02] MEDS: MUPIROCIN 2% OINT 22 GM TUBE TOPICAL SCH (08:28)
[2022-08-02] MEDS: ASPIRIN 81 MG PO SCH (08:28)
--- NOTE | 2022-08-02 11:22 | P.CNNES ---
History of Present Illness Consult date: 08/02/22 Requesting physician: Susie Contreras Reason for Consult: aphasia episode History of Present Illness: This is an 82-year-old gentleman with medical history of hypertension, documented and dementia, skin cancer presented to the emergency department because of syncopal episode. Neurology is consulted for an episode of the transit aphasia on 08/01/2022. It seems that the patient presented because of syncopal episode and the he notified me that he put toilet paper on the toilet seat and was about to sit and that as a result fell but he did not lose consciousness he denies any history of seizure or different that he denied any urinary or bowel consult tongue bite. It seems on 08/01/2022 he had an episode of unable to get his words out and appeared aphasic happened around possibly 1740. Per the nurse's note patient was slurred and had word salad. She was following commands and moving all extremity. His sugar was checked and was within normal limits. Code stroke was called. A CT of the head was done and is reported as cerebral atrophy. 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 No acute intracranial abnormality. CT angiography of the head and neck reported as no significant intercranial and angiographic abnormality. There is approximately 50% stenosis at the origin of right internal carotid artery and 25% stenosis or the left internal carotid artery. No IV TPA since his symptoms a were improving and has resolved and the risk outweighed the benefit. Other workup during this hospital visit consisted of: 2D echo was reported as normal left ventricular size and systolic function. Mild mitral and tricuspid regurgitation. Left atrium mildly increased left atrial diameter. No evidence of atrial septal defect. EKG is reported as sinus bradycardia. Possible left atrial enlargement. Borderline EKG. Ventricle rate in the 59. Orthostatic vitals on 07/29/2022 is negative. But on 07/29/2022 repeated the systolic blood pressure was 150 supine and sitting was 131 and was close to the positive. Repeated orthostatic on 07/29 was negative. On 07/31/2022 patient is orthostatic at close to 4 AM I felt were positive since the diastolic blood pressure decreased more than 10 from the sitting to standing but on 08/01/2022 with her negative again and repeated today orthostatic is negative. Cardiology was consulted and they signed off. Review of Systems Review of system: The 12 point system was reviewed and apparent positive and negative per HPI. Past Medical History Past Medical History: Cancer, Dementia, Hypertension Additional Past Medical History / Comment(s): Skin cancer 2021 History of Any Multi-Drug Resistant Organisms: None Reported Past Surgical History: Orthopedic Surgery Additional Past Surgical History / Comment(s): skin cancer removal, Right hip replacement Past Psychological History: No Psychological Hx Reported Smoking Status: Former smoker Past Alcohol Use History: None Reported Past Drug Use History: None Reported Medications and Allergies Home Medications Medication Instructions Recorded Confirmed Type Erivedge 150mg Caps 150 mg PO HS 07/28/22 07/28/22 History Losartan-Hctz 50-12.5 mg [Hyzaar 1 tab PO DAILY 07/28/22 07/28/22 History 50-12.5] Mupirocin 2% Oint [Bactroban 2% 1 applic TOPICAL DAILY 07/28/22 07/28/22 History Oint] Allergies Allergy/AdvReac Type Severity Reaction Status Date / Time No Known Allergies Allergy Verified 07/28/22 10:43 Physical Examination - Vital Signs Vital Signs: Vital Signs Temp Pulse Pulse Pulse Pulse Resp BP 08/02/22 10:55 97.5 F L 75 81 68 16 08/02/22 08:35 94 08/02/22 04:11 98.3 F 83 95 68 16 96/63 08/01/22 20:35 98.2 F 71 16 08/01/22 20:00 74 71 79 71 16 08/01/22 18:20 74 08/01/22 17:51 70 16 08/01/22 17:48 76 18 08/01/22 17:43 71 17 08/01/22 11:51 97.3 F L 74 79 71 17 BP BP BP Pulse Ox 08/02/22 10:55 143/87 133/79 153/77 08/02/22 08:35 119/77 08/02/22 04:11 95/56 95/58 97 08/01/22 20:35 132/78 94 L 08/01/22 20:00 08/01/22 18:20 128/74 96 08/01/22 17:51 150/79 97 08/01/22 17:48 153/82 95 08/01/22 17:43 122/77 95 08/01/22 11:51 117/71 118/70 124/75 96 Intake and Output 09/27/22 09/28/22 09/28/22 22:59 06:59 14:59 Intake Total 540 Output Total 2 Balance 538 Intake: Oral 540 Output: Urine 1 Stool 1 Other: Voiding Method Toilet # Voids 4 GENERAL: The patient is lying in bed and is not in acute distress. CHEST: The heart rate is regular rate rhythm. No murmurs to auscultation. LUNG: Clear to auscultation bilaterally no wheezing noted throughout. Not labored breathing. ABDOMEN/GI: Bowel sounds present in all 4 quadrants. No tenderness to palpation throughout. NEUROLOGICAL: Higher mental function: The patient is awake, alert, oriented to self, place and time. Patient is following commands. No aphasia and no neglect. Cranial nerves: The pupils are round, equal and reactive to light and accommodation. Visual hassan are full to confrontation throughout. Extraocular movement is intact no nystagmus is noted. Facial sensation is normal to touch throughout. The facial strength is normal throughout. Hearing is severely decreased bilaterally to hand rub. Tongue is midline and moved [id number] without any difficulty. No dysarthria is noted. Shoulder shrug is normal bilaterally. Motor: Gait: Walking with his cane and without difficulty and not swaying towards one side or other. The strength is 5 over 5 throughout. Normal tone and bulk. Cerebellum: Normal finger to nose bilaterally. Sensation: Sensation is normal to touch throughout. Reflexes (right/left): 1+ throughout. Plantars are downgoing bilaterally. Results - Laboratory Findings CBC and BMP: 07/28/22 09:36 07/28/22 09:36 Abnormal Lab Findings: Abnormal Labs 07/28/22 07/28/22 07/28/22 09:36 09:36 09:36 RDW 16.0 H Lymphocytes # 0.8 L APTT 19.6 L Carbon Dioxide Glucose Total Protein Urine Protein Trace H 07/28/22 09:36 RDW Lymphocytes # APTT Carbon Dioxide 21 L Glucose 120 H Total Protein 6.1 L Urine Protein Assessment and Plan Assessment: Transient episode of aphasia on 08/01/2022 with syncopal episode. Rule out seiz ure. Possible transient aphasia due to Transient ischemic attack Syncopal episode at home: Unclear etiology (but according to him he was trying to sit on a toilet seat and slipped off but denies any LOC). Orthostatics are negative. Documented history of dementia but currently oriented X3. Hypertension Plan: I ordered a routine EEG. I'll not start the patient on antiepileptic drug unless there is a performed discharge or seizure on the EEG MRI of the brain and Lipid panel are ordered by primary team and pending Aspirin 81 mg daily started by I [facility] team is to be continued as well as I start the patient on Lipitor 10 mg daily at bedtime for secondary stroke prophy laxis. Ordered TSH. 18 year tract On cardiac monitoring PT OT and SUPERVISOR LOCOMOTIVE are consulted We'll defer the rest of the medical management to primary team On subcu heparin 5000 units every 12 hours for DVT prophylaxis. Plan was discussed with the patient and his nurse Thank you for the consultation. Kobi Berger M.D. Neuro-hospitalist Time with Patient: Greater than 30
--- NOTE | 2022-08-02 11:26 | P.PN ---
Subjective Progress Note Date: 08/02/22 Patient is a 82-year-old male with a past medical history of hypertension and skin cancer with recent resection who presents to the ED because of a fall. Patient states that he took a warm shower and then sat on the toilet to dry himself and then the next thing he remembers is that he is between the toilet and the shower. Patient does not know how he got stuck there. He believes that he may have passed out. He denies urinary incontinence or tongue soreness. He also denies any chest pain or lightheadedness at that time. His nephew called EMS and he was brought in for further evaluation. Patient also states that his is at [facility] rehab and they have been trying to get him into rehab so that he can be with his and also because at home he is having a difficult time going up the stairs. In the ED family said they did not feel comfortable taking him home because they thought that he was high risk for falls. Of note when I first walked into the patient's room he was standing up independently and was urinating inside a urinal. Patient said that he is able to get up by himself a nd use the urinal. Orthostatic vitals were negative. Troponins were trended and ACS was ruled out. Echocardiogram was done which showed EF of 55-60%, severely increased septal wall thickness, mild mitral and tricuspid regurgitation. Cardiology was consulted and signed off. PT and OT evaluated the patient recommended retirement facility. Patient was accepted had [facility] starting 08/02. CODE STROKE was called on 08/01/2022 for confusion and aphasia. NIH scale was 6. Neuro interventional recommended no TPA. CT head showed old lacunar infarct in the right internal capsule. CTA head and neck showed 50% stenosis of the right internal carotid artery and 25% stenosis of the left internal carotid artery. Patient was seen and examined on 08/02/2022. Patient states that he wants to go to [facility] rehab. He has no other complaints. General: non toxic, no distress, appears at stated age Derm: warm, dry Head: atraumatic, normocephalic, symmetric Eyes: EOMI, no lid lag, anicteric sclera Mouth: no lip lesion, mucus membranes moist Cardiovascular: S1S2 reg, no murmur Lungs: CTA bilateral, no rhonchi, no rales , no accessory muscle use Ext: no gross muscle atrophy, no edema, no contractures Neuro: Cranial nerve II-12 grossly intact, no focal neuro deficits Psych: Alert and oriented 2 #Confusion and aphasia CT head showed old lacunar infarct in the right internal capsule. CTA head and neck showed 50% stenosis of the right internal carotid artery and 25% stenosis of the left internal carotid artery. Echocardiogram was done which showed EF of 55-60%, severely increased septal wall thickness, mild mitral and tricuspid regurgitation. Start aspirin 81 mg by mouth daily. MRI brain ordered. EEG ordered. A1c and lipid panel ordered. Neurology consulted. PTOT and ST consulted. #Syncope Patient now changed his story and said that he remembers how he fell off the toilet. Patient states that he slipped off the toilet seat. Rule out cardiogenic etiology. ACS ruled out. Telemetry negative for any malignant arrhythmias. Echocardiogram is unremarkable. Cardiology signed off. Orthostatics negative. #Hypertension Resume home meds. #Skin cancer at the back of his neck with recent resection Patient can discontinue Erivedge treatment until he is out of rehab. Anticipate discharge to [facility] after stroke workup. Objective - Vital Signs Vital signs: Vital Signs Temp 97.5 F L 08/02/22 10:55 Pulse 68 08/02/22 10:55 Resp 16 08/02/22 10:55 BP 143/87 08/02/22 10:55 Pulse Ox 97 08/02/22 04:11 FiO2 Intake & Output 08/01/22 08/02/22 08/02/22 18:59 06:59 18:59 Intake Total 540 Output Total 2 Balance 538 Intake: Oral 540 Output: Urine 1 Stool 1 Other: Voiding Method Toilet Toilet # Voids 4 - Labs CBC & Chem 7: 07/28/22 09:36 07/28/22 09:36
[2022-08-02] MEDS: ERIVEDGE 150 MG PO SCH (20:23)
[2022-08-02] MEDS ORDERED: ATORVASTATIN 10 MG TAB PO SCH (21:00)
[2022-08-03] MEDS: SODIUM CHLORIDE 0.9% 1,000 ML IV SCH ×3 (01:20→04:31)
--- NOTE | 2022-08-03 03:43 | EEG ---
ELECTROENCEPHALOGRAM REPORT CLINICAL HISTORY: This is an 82-year-old gentleman with possible syncopal episode at home and a recent transient aphasia. The video EEG is obtained to evaluate for seizure epileptiform activity. RELEVANT MEDICATION: The patient is not on any seizure medication. EEG TYPE: A routine 21-channel EEG is performed with video using the 10/20 electrode placement system. DESCRIPTION: Wakefulness and drowsiness are obtained. During awake state, the posterior-dominant rhythm consists of [id number] voltage of 9 to 9.5 hertz activity, that is well modulated and well sustained. There is no physiological stage 2 sleep architecture. There is no focal slowing. INTERICTAL AND ICTAL: None. ACTIVATION PROCEDURE: Photic stimulation did not evoke a posterior driving response. There is no abnormality during the photic stimulation. Hyperventilation is not performed. CLINICAL INTERPRETATION: This is a normal routine EEG. There is no focal slowing, epileptiform discharge, or seizure on the EEG. Clinical correlation is recommended. PATTIE / ILSAN: [id number] /
[2022-08-03] MEDS: LOSARTAN-HCTZ 50-12.5 MG 1 EACH TAB PO SCH (08:19)
[2022-08-03] MEDS: ASPIRIN 81 MG PO SCH (08:19)
[2022-08-03] MEDS: HEPARIN SODIUM,PORCINE/PF 5,000 UNIT/0.5 ML SYRINGE SQ SCH (08:19)
[2022-08-03] MEDS: MUPIROCIN 2% OINT 22 GM TUBE TOPICAL SCH (08:20)
[2022-08-03 09:32] LABS: Chol/HDL Ratio 3.67 Ratio; LDL Cholesterol,Calculated 98.9 mg/dL (0.0-131.0)
--- NOTE | 2022-08-03 10:42 | P.PN ---
Subjective Progress Note Date: 08/02/22 The patient is seen at bedside and feels he is doing well. No further syncopal episodes or speech difficulties. Objective - Vital Signs Vital signs: Vital Signs Temp 98.4 F 08/03/22 05:00 Pulse 63 08/03/22 05:00 Resp 16 08/03/22 05:00 BP 112/74 08/03/22 05:00 Pulse Ox 96 08/03/22 05:00 FiO2 Intake & Output 08/02/22 08/03/22 08/03/22 18:59 06:59 18:59 Intake Total 590 Balance 590 Intake: Oral 590 Other: Voiding Method Toilet Toilet # Voids 1 3 1 # Bowel Movements 1 - Exam GENERAL: The patient is lying in bed and is not in acute distress. NEUROLOGICAL: Higher mental function: The patient is awake, alert, oriented to self, place and time. Patient is following commands. No aphasia and no neglect. Cranial nerves: The pupils are round, equal and reactive to light and accommodation. Visual hassan are full to confrontation throughout. Extraocular movement is intact no nystagmus is noted. Facial sensation is normal to touch throughout. The facial strength is normal throughout. Hearing is severely decreased bilaterally to hand rub. Tongue is midline and moved [id number] without any difficulty. No dysarthria is noted. Shoulder shrug is normal bilaterally. Motor: Gait: Walking with his cane and without difficulty and not swaying towards one side or other. The strength is 5 over 5 throughout. Normal tone and bulk. Cerebellum: Normal finger to nose bilaterally. Sensation: Sensation is normal to touch throughout. Reflexes (right/left): 1+ throughout. Plantars are downgoing bilaterally. Some of the workup during this hospital visit consisted of: Hemoglobin A1c is 6.2 Lipid panel is triglyceride of 135, cholesterol is 173, LDL is [address] of the head was done and is reported as cerebral atrophy. 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 No acute intracranial abnormality. CT angiography of the head and neck reported as no significant intercranial and angiographic abnormality. There is approximately 50% stenosis at the origin of right internal carotid artery and 25% stenosis or the left internal carotid artery. 2D echo was reported as normal left ventricular size and systolic function. Mild mitral and tricuspid regurgitation. Left atrium mildly increased left atrial diameter. No evidence of atrial septal defect. Routine EEG is normal. There is no focal slowing, epileptiform discharges or seizure EKG is reported as sinus bradycardia. Possible left atrial enlargement. Borderline EKG. Ventricle rate in the 59. Orthostatic vitals on 07/29/2022 is negative. But on 07/29/2022 repeated the systolic blood pressure was 150 supine and sitting was 131 and was close to the positive. Repeated orthostatic on 07/29 was negative. On 07/31/2022 patient is orthostatic at close to 4 AM I felt were positive since the diastolic blood pressure decreased more than 10 from the sitting to standing but on 08/01/2022 with her negative again and repeated today orthostatic is negative. - Labs CBC & Chem 7: 07/28/22 09:36 07/28/22 09:36 Labs: Abnormal Lab Results - Last 24 Hours (Table) 08/03/22 Range/Units 05:40 Hemoglobin A1c 6.2 H (0.0-6.0) % Assessment and Plan Assessment: Transient episode of aphasia on 08/01/2022 with syncopal episode. Unsure etiology. Possible transient aphasia due to Transient ischemic attack. Routine EEG is normal. Syncopal episode at home: Unclear etiology (but according to him he was trying to sit on a toilet seat and slipped off but denies any LOC). Orthostatics are negative. Documented history of dementia but currently oriented X3. Hypertension Plan: Routine EEG is normal. If patient has any further syncopal episodes or transient confusion then recommend prolonged EEG. MRI of the brain is ordered by primary team and pending Aspirin 81 mg daily and continue Lipitor 10 mg daily at bedtime for secondary stroke prophylaxis. On cardiac monitoring PT OT and REAL ESTATE AGENT/BROKER are consulted We'll defer the rest of the medical management to primary team On subcu heparin 5000 units every 12 hours for DVT prophylaxis. Recommend patient to follow-up with neurologist as outpatient within 1-2 weeks. Plan was discussed with the patient and his nurse Kobi Berger M.D. Neuro-hospitalist Time with Patient: Less than 30
[2022-08-03 11:39] VITALS: BP 116/72; PULSE 69; TEMP 98.3
--- NOTE | 2022-08-03 15:16 | MR ---
EXAMINATION TYPE: MR brain wo con DATE OF EXAM: 08/03/2022 3:10 PM COMPARISON: NONE HISTORY: aphasia episode. FINDINGS: The ventricles, basal cisterns and sulci overlying the cerebral convexities are mildly enlarged. There is evidence of moderate periventricular white matter ischemic demyelination. Remote insult rig ht navarro radiata. Remote deep white matter insults are also noted. No acute edema is seen on diffusion weighted imaging. There is no evidence for midline shift or mass effect. Acute intracranial hemorrhage or extra-axial collection is not evident. Moderate shrestha sinusitis. Mastoid air cells are mildly opacified on the right. IMPRESSION: Age-related atrophic and chronic small vessel ischemic change. No acute intracranial process at this time.
--- NOTE | 2022-08-03 15:25 | P.DS ---
Providers Date of admission: 07/28/22 12:31 Expected date of discharge: 08/03/22 Attending physician: Maxwell Alvarado MD Consults: 07/28/22 16:22 Consult Physician Routine Consulting Provider: [facility] Consult Reason/Comments: syncope Do you want consulting provider notified?: Yes 08/01/22 18:54 Consult Physician Routine Consulting Provider: Kobi Berger Consult Reason/Comments: aphasia episode Do you want consulting provider notified?: Yes Primary care physician: [facility] Course: Patient is a 82-year-old male with a past medical history of hypertension and skin cancer with recent resection who presents to the ED because of a fall. Patient states that he took a warm shower and then sat on the toilet to dry himself and then the next thing he remembers is that he is between the toilet and the shower. Patient does not know how he got stuck there. He believes that he may have passed out. He denies urinary incontinence or tongue soreness. He also denies any chest pain or lightheadedness at that time. His nephew called EMS and he was brought in for further evaluation. Patient also states that his is at [facility] rehab and they have been trying to get him into rehab so that he can be with his and also because at home he is having a difficult time going up the stairs. In the ED family said they did not feel comfortable taking him home because they thought that he was high risk for falls. Of note when I first walked into the patient's room he was standing up independently and was urinating inside a urinal. Patient said that he is able to get up by himself and use the urinal. Orthostatic vitals were negative. Troponins were trended and ACS was ruled out. Echocardiogram was done which showed EF of 55-60%, severely increased septal wall thickness, mild mitral and tricuspid regurgitation. Cardiology was consulted and signed off. PT and OT evaluated the patient recommended correction facility. Patient was accepted had [facility] starting 08/02. CODE STROKE was called on 08/01/2022 for confusion and aphasia. NIH scale was 6. Neuro interventional recommended no TPA. CT head showed old lacunar infarct in the right internal capsule. CTA head and neck showed 50% stenosis of the right internal carotid artery and 25% stenosis of the left internal carotid artery. MRI was ordered and pending at the time of this note. Neurology was consulted and recommended ASA and Lipitor. A1c was 6.2. Lipid panel showed LDL of 98.9. MRI brain was negative for acute CVA. Patient was accepted to [facility] for SNF. Patient can discontinue Erivedge treatment until he is out of rehab. Patient seen and examined on 08/03/2022. He reported no complaints. He is advised follow-up with his PCP within 1-2 days of discharge. Follow-up with neurology within 1 week of discharge. Follow-up with cardiology within 1 week of discharge. Advised to take all medications as prescribed. Patient verbalized understanding of the plan. General: non toxic, no distress, appears at stated age Derm: warm, dry Head: atraumatic, normocephalic, symmetric Eyes: EOMI, no lid lag, anicteric sclera Mouth: no lip lesion, mucus membranes moist Cardiovascular: S1S2 reg, no murmur Lungs: CTA bilateral, no rhonchi, no rales , no accessory muscle use Ext: no gross muscle atrophy, no edema, no contractures Neuro: Cranial nerve II-12 grossly intact, no focal neuro deficits Psych: Alert and oriented 2 Discharge Diagnosis: #Confusion and aphasia #Syncope #Hypertension #Skin cancer at the back of his neck with recent resection Pertinent Studies: Chest x-ray Echocardiogram next brain CT CTA head and neck EEG Brain MRI Patient Condition at Discharge: Stable Plan - Discharge Summary Discharge Rx Participant: No New Discharge Prescriptions: New Aspirin 81 mg PO DAILY tab Atorvastatin [Lipitor] 10 mg PO HS tab Continue Mupirocin 2% Oint [Bactroban 2% Oint] 1 applic TOPICAL DAILY Losartan-Hctz 50-12.5 mg [Hyzaar 50-12.5] 1 tab PO DAILY Discontinued Erivedge 150mg Caps 150 mg PO HS Discharge Medication List Losartan-Hctz 50-12.5 mg [Hyzaar 50-12.5] 1 tab PO DAILY 07/28/22 [History] Mupirocin 2% Oint [Bactroban 2% Oint] 1 applic TOPICAL DAILY 07/28/22 [History] Aspirin 81 mg PO DAILY tab 08/03/22 [Rx] Atorvastatin [Lipitor] 10 mg PO HS tab 08/03/22 [Rx] Follow up Appointment(s)/Referral(s): Miguel A Alanis MD [REFERRING] - 1 Week Francisco Javier Caballero DO [Primary Care Provider] - 1-2 days Jj Tobias DO [STAFF PHYSICIAN] - 1 Week Activity/Diet/Wound Care/Special Instructions: Diet: Cardiac FU PCP within 1-2 days of DC. FU Cardiology and Neurology within 1 week of DC. Discharge Disposition: TRANSFER TO SNF/ECF
== END 2022-08-03 16:20 ==
LOC: EC 09:12 → 5NMEDONC 12:31
PROVIDERS: ADMIT Internal Medicine; ATTEND Internal Medicine
DX: R55 Syncope and collapse (principal); R47.01 Aphasia; R41.0 Disorientation, unspecified; R00.1 Bradycardia, unspecified; R29.6 Repeated falls; I65.23 Occlusion and stenosis of bilateral carotid arteries; I10 Essential (primary) hypertension; F03.90 Unspecified dementia, unspecified severity, without behavioral disturbance, psychotic disturbance, mood disturbance, and anxiety; I08.1 Rheumatic disorders of both mitral and tricuspid valves; W18.11XA Fall from or off toilet without subsequent striking against object, initial encounter; Z79.899 Other long term (current) drug therapy; Z85.828 Personal history of other malignant neoplasm of skin; Z87.891 Personal history of nicotine dependence; Z96.641 Presence of right artificial hip joint; Z86.73 Personal history of transient ischemic attack (TIA), and cerebral infarction without residual deficits; Z98.890 Other specified postprocedural states
CPT/HCPCS: 96361 ×3; 96372 ×7; 96360; 99285; 36415; 95816; 93005; 93306; 97116 ×2; 97530 ×3; 97162; 97535 ×3; 97166; 92523; 80061; 80053; 83735; 84484; 85025; 85610; 85730; 81003; 83036; 71046; 70496; 70450; 70498; 70551; G0378 ×7; Q9967; J1644 ×7

== ENCOUNTER 2024-07-29 10:06 | Emergency (ER) | payer MEDICARE ==
--- NOTE | 2024-07-29 10:57 | ED ---
GI Bleed HPI - General Chief complaint: GI Bleed Stated complaint: GI Bleed Time Seen by Provider: 07/29/24 10:15 Source: EMS Mode of arrival: EMS Limitations: no limitations - History of Present Illness Initial comments: 84-year-old male with past medical history of dementia who presents to the emergency department from [facility] on the [place]. Patient had several episodes of vomiting which consisted of dark, clotted blood. EMS states that it was a fairly extensive amount which was all over the whyte of his room. EMS reports up to "1 gallon". Patient does not have a history of liver disease, gastric ulcer or other GI bleeding. He cannot provide much history due to dementia. He was not given anything prior to hospital arrival by EMS. Patient admits to nausea but thinks it is because he "ate [employer]". No alcohol use. Patient is not on a blood thinner. No other alleviating, precipitating modifying factors - Related Data Home Medications Medication Instructions Recorded Confirmed Losartan-Hctz 50-12.5 mg [Hyzaar 1 tab PO DAILY 07/28/22 07/29/24 50-12.5] Cholecalciferol [Vitamin D3 (25 50 mcg PO DAILY 07/29/24 07/29/24 Mcg = 1000 Iu)] Clotrimazole/Betameth Cream 1 applic TOPICAL DAILY 07/29/24 07/29/24 [Lotrisone] Dextran/Hypromellose/Glycerin 1 drop BOTH EYES Q12H 07/29/24 07/29/24 [Artificial Tears 0.1-0.2-0.3%] Triamcinolone 0.1% Cream [Kenalog 1 applic TOPICAL BID 07/29/24 07/29/24 0.1% Cream] Vit C/E/Zn/Coppr/Lutein/Zeaxan 1 cap PO BID 07/29/24 07/29/24 [Preservision Areds 2 Softgel] Previous Rx's Medication Instructions Recorded Aspirin 81 mg PO DAILY tab 08/03/22 Atorvastatin [Lipitor] 10 mg PO HS tab 08/03/22 Allergies Allergy/AdvReac Type Severity Reaction Status Date / Time No Known Allergies Allergy Verified 07/29/24 12:28 Review of Systems ROS Statement: Those systems with pertinent positive or pertinent negative responses have been documented in the HPI. ROS Other: All systems not noted in ROS Statement are negative. Past Medical History Past Medical History: Cancer, Dementia, Hypertension Additional Past Medical History / Comment(s): Skin cancer 2021 History of Any Multi-Drug Resistant Organisms: None Reported Past Surgical History: Orthopedic Surgery Additional Past Surgical History / Comment(s): skin cancer removal, Right hip replacement Past Psychological History: No Psychological Hx Reported Smoking Status: Former smoker Past Alcohol Use History: None Reported Past Drug Use History: None Reported General Exam Limitations: altered mental status (dementia) General appearance: alert, in no apparent distress Head exam: Present: atraumatic, normocephalic, normal inspection Eye exam: Present: normal appearance, PERRL, EOMI. Absent: scleral icterus, conjunctival injection, periorbital swelling ENT exam: Present: normal exam, mucous membranes moist Neck exam: Present: normal inspection. Absent: tenderness, meningismus, lymphadenopathy Respiratory exam: Present: normal lung sounds bilaterally. Absent: respiratory distress, wheezes, rales, rhonchi, stridor Cardiovascular Exam: Present: regular rate, normal rhythm, normal heart sounds. Absent: systolic murmur, diastolic murmur, rubs, gallop, clicks GI/Abdominal exam: Present: soft, normal bowel sounds. Absent: distended, tenderness, guarding, rebound, rigid Rectal exam: Present: heme (+) stool, other (brown stool). Absent: black stool, bloody stool, mass Extremities exam: Present: normal inspection, full ROM, normal capillary refill. Absent: tenderness, pedal edema, joint swelling, calf tenderness Back exam: Present: normal inspection Neurological exam: Present: alert, CN II-XII intact Psychiatric exam: Present: normal affect, normal mood Skin exam: Present: warm, dry, intact, normal color. Absent: rash Course Vital Signs 07/29/24 07/29/24 07/29/24 10:11 11:21 13:27 Temperature 98.1 F Pulse Rate 100 101 H 102 H Respiratory 20 18 20 Rate Blood Pressure 117/74 120/74 110/76 O2 Sat by Pulse 96 96 99 Oximetry 07/29/24 14:49 Temperature 97.9 F Pulse Rate 114 H Respiratory 20 Rate Blood Pressure 99/68 O2 Sat by Pulse 97 Oximetry Medical Decision Making - Medical Decision Making Was pt. sent in by a medical professional or institution (, PA, GAMEPLAY PROGRAMMER, urgent care, hospital, or senior living...) When possible be specific @ -Patient was sent in from [facility] on the [place] Did you speak to anyone other than the patient for history (EMS, parent, family, police, friend...)? What history was obtained from this source @ -I spoke with EMS for history Did you review nursing and triage notes (agree or disagree)? Why? @ -I reviewed and agree with nursing and triage notes Were old charts reviewed (outside hosp., previous admission, EMS record, old EKG, old radiological studies, urgent care reports/EKG's, senior living records)? Report findings @ -I reviewed the paperwork from [facility] that was sent in with him Differential Diagnosis (chest pain, altered mental status, abdominal pain women, abdominal pain men, vaginal bleeding, weakness, fever, dyspnea, syncope, headache, dizziness, GI bleed, back pain, seizure, CVA, palpatations, mental health, musculoskeletal)? @ -Differential GI Bleed: Esophageal varices, aortoenteric fistula, [place], gastritis, peptic ulcer disease, diverticulosis, inflammatory bowel disease, hemorrhoids, fissure, colitis, malignancy, Meckel's diverticulum, this is not meant to be an all- inclusive list. EKG interpreted by me (3pts min.). @ -Yes and demonstrates sinus tachycardia with a rate of 101. ID interval 128. QRS 87. QTc of 377. No acute ST segment elevations or depressions X-rays interpreted by me (1pt min.). @ -None done CT interpreted by me (1pt min.). @ -None done U/S interpreted by me (1pt. min.). @ -None done What testing was considered but not performed or refused? (CT, X-rays, U/S, labs)? Why? @ -CT was considered however patient has no abdominal pain What meds were considered but not given or refused? Why? @ -None Did you discuss the management of the patient with other professionals (professionals i.e. , PA, GAMEPLAY PROGRAMMER, lab, RT, psych nurse, secondary social studies teacher, scan coordinator, teacher, community resource officer, nurse outreach case manager)? Give summary @ -Discussed the case with Dr. Landaverde at [facility] who does accept the patient Was smoking cessation discussed for >3mins.? @ -No Was critical care preformed (if so, how long)? @ -No Were there social determinants of health that impacted care today? How? (Homelessness, low income, unemployed, alcoholism, drug addiction, transportation, low edu. Level, literacy, decrease access to med. care, long-term, re hab)? @ -Patient resides at a rehab facility Was there de-escalation of care discussed even if they declined (Discuss DNR or withdrawal of care, Hospice)? DNR status @ -Yes and family was agreeable that they want everything done for the patient What co-morbidities impacted this encounter? (DM, HTN, Smoking, COPD, CAD, Cancer, CVA, ARF, Chemo, Hep., AIDS, mental health diagnosis, sleep apnea, mor bid obesity)? @ -Hypertension, dementia Was patient admitted / discharged? Hospital course, mention meds given and route, prescriptions, significant lab abnormalities, going to OR and other pertinent info. @ -Upon arrival patient seen and evaluated in room 21. Thorough history and physical exam was performed. IV was established. Patient was given 80 mg of Protonix and 4 mg of Zofran. Laboratory studies were conducted. Patient is hemodynamically stable. Occult was performed and is positive. We do not have GI services. Recommended transfer to a facility with GI capabilities. I spoke with family. Next of kin Gabriela does agree to transfer. Agreeable to transfer to [facility]. Called and spoke with Dr. Landaverde who agreed to the transfer. Patient transferred in stable condition Undiagnosed new problem with uncertain prognosis? @ -yes Drug Therapy requiring intensive monitoring for toxicity (Heparin, Nitro, Insulin, Cardizem)? @ -No Were any procedures done? @ -No Diagnosis/symptom? @ -Acute hematemesis, acute upper GI bleed Acute, or Chronic, or Acute on Chronic? @ -Acute Uncomplicated (without systemic symptoms) or Complicated (systemic symptoms)? @ -Complicated Side effects of treatment? @ -No Exacerbation, Progression, or Severe Exacerbation? @ -No Poses a threat to life or bodily function? How? (Chest pain, USA, OR, pneumonia, PE, COPD, DKA, ARF, appy, cholecystitis, CVA, Diverticulitis, Homicidal, Suicidal, threat to staff... and all critical care pts) @ -This patient has emesis of a significant amount of blood - Lab Data Result diagrams: 07/29/24 11:14 07/29/24 11:14 Lab Results 07/29/24 07/29/24 07/29/24 Range/Units 10:55 11:00 11:14 WBC 15.1 H (3.8-10.6) k/uL RBC 4.96 (4.30-5.90) m/uL Hgb 14.5 (13.0-17.5) gm/dL Hct 43.3 (39.0-53.0) % MCV 87.4 (80.0-100.0) fL MCH 29.3 (25.0-35.0) pg MCHC 33.5 (31.0-37.0) g/dL RDW 14.7 (11.5-15.5) % Plt Count 238 (150-450) k/uL MPV 8.4 Neutrophils % 88 % Lymphocytes % 6 % Monocytes % 5 % Eosinophils % 0 % Basophils % 0 % Neutrophils # 13.3 H (1.3-7.7) k/uL Lymphocytes # 0.9 L (1.0-4.8) k/uL Monocytes # 0.8 (0-1.0) k/uL Eosinophils # 0.0 (0-0.7) k/uL Basophils # 0.1 (0-0.2) k/uL PT (10.0-12.5) sec INR (<1.2) APTT (22.0-30.0) sec Sodium (137-145) mmol/L Potassium (3.5-5.1) mmol/L Chloride (98-107) mmol/L Carbon Dioxide (22-30) mmol/L Anion Gap mmol/L BUN (9-20) mg/dL Creatinine (0.66-1.25) mg/dL Est GFR (CKD-EPI)AfAm (>60 ml/min/1.73 sqM) Est GFR (CKD-EPI)NonAf (>60 ml/min/1.73 sqM) Glucose (74-99) mg/dL Plasma Lactic Acid Nav (0.7-2.0) mmol/L Calcium (8.4-10.2) mg/dL Magnesium (1.6-2.3) mg/dL Total Bilirubin (0.2-1.3) mg/dL AST (17-59) U/L ALT (4-49) U/L Alkaline Phosphatase (38-126) U/L Ammonia (<30) umol/L Troponin I (0.000-0.034) ng/mL Total Protein (6.3-8.2) g/dL Albumin (3.5-5.0) g/dL Lipase (23-300) U/L Stool Occult Blood (Negative) Blood Type O Positive Blood Type Confirm O Positive Blood Type Recheck No Previous Record Bld Type Recheck Status CABO Indicated Antibody Screen NEGATIVE Spec Expiration Date 08/01/2024 - 231307/29/24 07/29/24 07/29/24 Range/Units 11:14 11:14 11:14 WBC (3.8-10.6) k/uL RBC (4.30-5.90) m/uL Hgb (13.0-17.5) gm/dL Hct (39.0-53.0) % MCV (80.0-100.0) fL MCH (25.0-35.0) pg MCHC (31.0-37.0) g/dL RDW (11.5-15.5) % Plt Count (150-450) k/uL MPV Neutrophils % % Lymphocytes % % Monocytes % % Eosinophils % % Basophils % % Neutrophils # (1.3-7.7) k/uL Lymphocytes # (1.0-4.8) k/uL Monocytes # (0-1.0) k/uL Eosinophils # (0-0.7) k/uL Basophils # (0-0.2) k/uL PT 10.6 (10.0-12.5) sec INR 1.0 (<1.2) APTT 23.6 (22.0-30.0) sec Sodium 139 (137-145) mmol/L Potassium 4.5 (3.5-5.1) mmol/L Chloride 104 (98-107) mmol/L Carbon Dioxide 28 (22-30) mmol/L Anion Gap 7 mmol/L BUN 40 H (9-20) mg/dL Creatinine 0.81 (0.66-1.25) mg/dL Est GFR (CKD-EPI)AfAm >90 (>60 ml/min/1.73 sqM) Est GFR (CKD-EPI)NonAf 82 (>60 ml/min/1.73 sqM) Glucose 115 H (74-99) mg/dL Plasma Lactic Acid Nav (0.7-2.0) mmol/L Calcium 8.6 (8.4-10.2) mg/dL Magnesium 1.9 (1.6-2.3) mg/dL Total Bilirubin 0.6 (0.2-1.3) mg/dL AST 22 (17-59) U/L ALT 21 (4-49) U/L Alkaline Phosphatase 81 (38-126) U/L Ammonia (<30) umol/L Troponin I (0.000-0.034) ng/mL Total Protein 5.6 L (6.3-8.2) g/dL Albumin 3.3 L (3.5-5.0) g/dL Lipase 74 (23-300) U/L Stool Occult Blood Positive (Negative) Blood Type Blood Type Confirm Blood Type Recheck Bld Type Recheck Status Antibody Screen Spec Expiration Date 07/29/24 07/29/24 Range/Units 11:14 11:14 WBC (3.8-10.6) k/uL RBC (4.30-5.90) m/uL Hgb (13.0-17.5) gm/dL Hct (39.0-53.0) % MCV (80.0-100.0) fL MCH (25.0-35.0) pg MCHC (31.0-37.0) g/dL RDW (11.5-15.5) % Plt Count (150-450) k/uL MPV Neutrophils % % Lymphocytes % % Monocytes % % Eosinophils % % Basophils % % Neutrophils # (1.3-7.7) k/uL Lymphocytes # (1.0-4.8) k/uL Monocytes # (0-1.0) k/uL Eosinophils # (0-0.7) k/uL Basophils # (0-0.2) k/uL PT (10.0-12.5) sec INR (<1.2) APTT (22.0-30.0) sec Sodium (137-145) mmol/L Potassium (3.5-5.1) mmol/L Chloride (98-107) mmol/L Carbon Dioxide (22-30) mmol/L Anion Gap mmol/L BUN (9-20) mg/dL Creatinine (0.66-1.25) mg/dL Est GFR (CKD-EPI)AfAm (>60 ml/min/1.73 sqM) Est GFR (CKD-EPI)NonAf (>60 ml/min/1.73 sqM) Glucose (74-99) mg/dL Plasma Lactic Acid Nav 1.4 (0.7-2.0) mmol/L Calcium (8.4-10.2) mg/dL Magnesium (1.6-2.3) mg/dL Total Bilirubin (0.2-1.3) mg/dL AST (17-59) U/L ALT (4-49) U/L Alkaline Phosphatase (38-126) U/L Ammonia 21 (<30) umol/L Troponin I 0.064 H* (0.000-0.034) ng/mL Total Protein (6.3-8.2) g/dL Albumin (3.5-5.0) g/dL Lipase (23-300) U/L Stool Occult Blood (Negative) Blood Type Blood Type Confirm Blood Type Recheck Bld Type Recheck Status Antibody Screen Spec Expiration Date Disposition Clinical Impression: Upper GI bleed Disposition: OTHER INSTITUTION NOT DEFINED Condition: Serious Is patient prescribed a controlled substance at d/c from ED?: No Referrals: Catalino Wray MD [Primary Care Provider] - 1-2 days Time of Disposition: 14:08 - Out of Hospital Transfer - Req. Specs Out of Hospital Transfer - Requested Specifics: Other Emergency Center ([facility])
[2024-07-29] MEDS: PANTOPRAZOLE 40 MG/10 ML VIAL IVP STA (11:26)
[2024-07-29] MEDS: ONDANSETRON 4 MG/2 ML VIAL IVP STA (11:26)
[2024-07-29 11:45] LABS: Lactic Acid, Venous 1.4 mmol/L (0.7-2.0)
[2024-07-29 11:48] LABS: ALT 21 U/L (4-49); AST 22 U/L (17-59); African American GFR (CKD) >90 (>60 ml/min/1.73 sqM); Albumin 3.3 g/dL (3.5-5.0); Alkaline Phosphatase 81 U/L (38-126); Anion Gap 7 mmol/L; Blood Urea Nitrogen 40 mg/dL (9-20); Calcium 8.6 mg/dL (8.4-10.2); Carbon Dioxide 28 mmol/L (22-30); Chloride 104 mmol/L (98-107); Glucose 115 mg/dL (74-99); Lipase 74 U/L (23-300); Magnesium 1.9 mg/dL (1.6-2.3); Non-African American GFR(CKD) 82 (>60 ml/min/1.73 sqM); Potassium 4.5 mmol/L (3.5-5.1); Sodium 139 mmol/L (137-145); Total Bilirubin 0.6 mg/dL (0.2-1.3); Total Protein 5.6 g/dL (6.3-8.2)
[2024-07-29 11:54] LABS: Basophils # (A) 0.1 k/uL (0-0.2); Basophils % (A) 0 %; Eosinophils % (A) 0 %; HCT 43.3 % (39.0-53.0); HGB 14.5 gm/dL (13.0-17.5); Lymphocytes # (A) 0.9 k/uL (1.0-4.8); Lymphocytes % (A) 6 %; MCH 29.3 pg (25.0-35.0); MCHC 33.5 g/dL (31.0-37.0); MCV 87.4 fL (80.0-100.0); Mean Platelet Volume 8.4; Monocytes # (A) 0.8 k/uL (0-1.0); Monocytes % (A) 5 %; Neutrophils # (A) 13.3 k/uL (1.3-7.7); Neutrophils % (A) 88 %; Platelet Count 238 k/uL (150-450); RBC 4.96 m/uL (4.30-5.90); RDW 14.7 % (11.5-15.5); WBC 15.1 k/uL (3.8-10.6)
[2024-07-29 12:16] LABS: Partial Thromboplastin Time 23.6 sec (22.0-30.0); Prothrombin Time 10.6 sec (10.0-12.5)
[2024-07-29 13:29] VITALS: RESP 20
[2024-07-29 14:51] VITALS: BP 99/68; PULSE 114; TEMP 97.9
== END 2024-07-29 14:58 | disposition other institution (70) ==
LOC: EC 10:06
DX: K92.2 Gastrointestinal hemorrhage, unspecified
CPT/HCPCS: 36415; 80053; 82140; 82272; 83605; 83690; 83735; 84484; 85025; 85610; 85730; 86850; 86900; 86901; 93005; 96374; 96375; 99285